=== PATIENT | male | born 1945 | race Caucasian/White ===

== ENCOUNTER 2017-05-17 13:41 | Emergency (ER) | payer OTHER, MEDICARE ==
[~2017-05-17] VITALS: Ht 175.3 cm; Wt 92.5 kg
[~2017-05-17 13:41] MED LIST: ACETAMINOPHEN-H1 TA1 PO; BACTRIM DS 8001 TAB PO; CIPRO 500MG TA500 MG PO; CRESTOR5 MG PO; DICLOFENAC SODI75 M3 PO; ENALAPRIL MALEA10 MG PO; ENALAPRIL MALEA20 MG PO; FLAGYL 500MG.500 MG PO; FLAGYL500 M1 PO; FLOMAX 0.4MG C0.4 MG PO; HYDROCODONE/ACE1 TA5 PO; HYDROCODONE1 TABLET PO; IMITREX100 MG PO; LEADER ASPIRIN325 MG PO; LEVAQUIN 750 M750 MG PO; LEVAQUIN500 MG PO; LORTAB 500 MG-11 TAB PO; NICOTINE PATCH;21 MG TD; NITROGLYCERIN0.4 MG SL; OMEPRAZOLE D/R20 MG PO; PRAVACHOL40 M1 PO; PREDNISONE 10MG10 MG PO; PREDNISONE 20MG20 MG PO; PRILOSEC20 MG; PROPRANOLOL ER80 MG PO; PYRIDIUM200 M1 PO; SUMATRIPTAN SU100 M1 PO; TAMSULOSIN HYD0.4 M1 PO; TAMSULOSIN HYD0.4 MG PO; TYLENOL W/CODEI1 TA2 PO; VOLTAREN GEL1% TP; ZOFRAN4 MG PO
[2017-05-17 13:56] LABS: HEMOGLOBIN 15.7 g/dL (14.1-18.0); LYMPH # 2.1 K/mm3 (0.7-4.5); LYMPH % 26.2 % (10-50)
--- OUTSIDE RECORDS SUMMARY | 2017-05-17 14:22 | External Medical Summary Rpt ---
Author Author [place] Address Unknown Phone [email or web address] Purpose Continuity of Care Document - through 2016
--- OUTSIDE RECORDS SUMMARY | 2017-05-17 14:22 | External Medical Summary Rpt ---
Author Author [employer] Organization [employer] Address Unknown Phone Unavailable Purpose Continuity of Care Document - through 2016
--- OUTSIDE RECORDS SUMMARY | 2017-05-17 14:22 | External Medical Summary Rpt ---
Author Author TWILA Martinez, [employer] Organization [employer] Address Unknown Phone Unavailable
--- OUTSIDE RECORDS SUMMARY | 2017-05-17 14:22 | External Medical Summary Rpt ---
Demographics Preferred Language Romansh Marital Status Unknown Restoration Affiliation Unknown Race Unknown Ethnic Group Unknown Author Author , TWILA MATTSON Address Unknown Phone Immunization Unable to retrieve immunization data due to connection failure with Immunization Registry. Please try again later.
--- OUTSIDE RECORDS SUMMARY | 2017-05-17 14:22 | External Medical Summary Rpt ---
Demographics Preferred Language Malay Marital Status Unknown Hinduism Affiliation Unknown Race Unknown Ethnic Group Unknown Author Author , TWILA MATTSON Address Unknown Phone Immunization Unable to retrieve immunization data due to connection failure with Immunization Registry. Please try again later.
--- OUTSIDE RECORDS SUMMARY | 2017-05-17 14:22 | External Medical Summary Rpt ---
Author Author [place] Address Unknown Phone [email or web address] [place] Purpose Continuity of Care Document - through 2016
--- NOTE | 2017-05-17 14:30 | RADIOLOGY REPORT PS360 ---
CT HEAD W/O CONTRAST HISTORY: NEAR SYNCOPE ORDERING PHYSICIAN: Miguel Angel Ruiz MD PATIENT AGE: 72 years COMPARISON: 12/03/2008 TECHNIQUE: Axial images obtained without contrast. Brain and bone windows reviewed. FINDINGS: No midline shift, mass effect, intracranial hemorrhage, hydrocephalus, or extra-axial fluid collection is evident. Nonspecific slight decreased attenuation is present in the periventricular and subcortical region consistent with ischemic gliotic change from microvascular disease. The calvarium has an unremarkable appearance. No mastoid effusion. There is severe mucosal thickening of the ethmoid sinuses and moderate mucosal thickening of the sphenoid and maxillary sinuses with an air-fluid level in left maxillary sinus and severe mucosal thickening of the frontal sinuses. IMPRESSION: 1. No acute intracranial pathology. 2. Sinusitis
[2017-05-17 14:37] LABS: BUN 12 mg/dL (7-18)
[2017-05-17 14:38] LABS: GFR (ESTIMATED) 37 ML/MIN (>60)
--- NOTE | 2017-05-17 14:44 | Emergency Room Report ---
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 N Clinical Suspician of Infection? N Mental Status: 1 - Regular (Normal Baseline) Sepsis Risk:Low Sepsis Risk Have you (or family members/close friends) recently traveled outside the [place]? N If Yes, where/when: Have you had exposure to infectious disease within the past month? N TB? Other? Specify: Source patient, RN notes reviewed, family, RN/MD Exam Limitations no limitations Comment This is a 72-year-old male patient presented emergency room with body aches, headache, dizziness, after spending extensive amount of time IN the heat, working. Patient has any fall, denies any head injury. Headache is described as worst ever. He denies any nausea, vomiting, fever, neck stiffness. ALLERGIES Coded Allergies: morphine (Intermediate, VOMITING 05/25/16) acetaminophen (From NYQUIL) (05/25/16) dextromethorphan (From NYQUIL) (05/25/16) doxylamine (From NYQUIL) (05/25/16) pseudoephedrine (From NYQUIL) (05/25/16) Home Medications Active Scripts NITROGLYCERIN (Nitrostat) 0.4 MG SL [id number] PRN CHEST PAIN #25 TABLET Prov: 09/26/14 Reported Medications Rosuvastatin Calcium (Crestor) 5 MG PO QHS Aspirin (Aspirin EC) 325 MG PO DAILY Omeprazole 20 MG PO BID Enalapril Maleate 10 MG PO DAILY HYDROCODONE/ACETAMINOPHEN (Hydrocodon-Acetaminophn 10-325) 1 TAB PO QIDP PRN PAIN #120 TAB Sumatriptan Succinate 100 MG PO Q2HP PRN MIGRAINES #9 TAB History Medical History General CAD? No Angina: Yes [place]: No Hypertension? Yes Hyperlipidemia? Yes CHF? No DVT? No PE? No COPD? No Asthma? No Anemia? No GERD? Yes Gastric ulcers? No GI Bleed? No Hernia? Yes Thyroid Problems? No Hypothyroidism? No CVA? No Seizures? No Diabetes? No Renal Insuffiency? No End Stage Renal Disease? No UTI? No Stones? Yes BPH? No GB Disease: No Nephritic Syndrome? No Asplenia? No Hepatitis? No Sickle Cell Disease? No Arthritis? No Migraines? No Cataracts? No Glaucoma? No MRSA? No HIV? No TB? No Anxiety? No Depression? No Cancer? No More? Yes Additional hx: DIVERTICULITIS Immunization Hx DT/Tetanus 1-4 Years Ago Flu 2015-17FSN Pneumonia Received In Past Surgical Hx Previous Surgery?Y BACK SURGERY 2006 RT KIDNEY STENT Family History Family Hx Diabetes No CAD No Hypertension Yes Hyperlipidemia Yes Cancer Yes TB No Social History Smoking Hx Smoker: Current Every Day Smoker Tobacco: Yes Type Cigarettes Packs/day < 1 Pack Alcohol Alcohol: No Review of Systems All Other Systems Reviewed and Negative Psychiatric/Neurological headache, weakness, other (dizziness) Physical Exam Vital Signs Vital Signs Date Time Temp Pulse Resp B/P Pulse O2 O2 Flow FiO2 Ox Delivery Rate 05/17 1718 97.9 50 20 129/84 97 05/17 1653 50 20 130/81 97 05/17 1609 58 20 122/70 97 05/17 1531 58 20 100/68 97 05/17 1459 20 05/17 1441 70 20 94/58 97 05/17 1344 97.9 70 20 104/69 97 General Appearance normal appearance, WD/WN, no apparent distress Neck normal inspection, non-tender, supple, full range of motion Respiratory Status Yes: trachea midline, chest symmetrical, non tender chest. No: respiratory distress. Lung Sounds bilateral: normal breath sounds, lungs clear. 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 No Comment Patient admitted that he does not drink many fluids for the day, and the only tyoe of fluid that side to drink is tea. Patient's blood pressure dropped to 90 systolic while in the emergency room, advised patient to discontinue the Vasotec at this time. His renal panel is suggestive of acute renal failure secondary to dehydration + JESSICA inhibitors. Results/Orders Laboratory Tests 05/17/17 1650: Urine Color YELLOW, Urine Appearance CLEAR, Urine pH 5.5, Ur Specific [place] 1.020, Urine Protein 1+ H, Urine Ketones NEGATIVE, Urine Blood NEGATIVE, Urine Nitrate NEGATIVE, Urine Bilirubin NEGATIVE, Urine Urobilinogen 1.0, Ur Leukocyte Esterase NEGATIVE, Urine RBC NONE, Urine WBC 3-5, Ur Squamous Epith Cells OCC, Urine Bacteria 3+, Hyaline Casts 10-20, Urine Mucus 4+, Urine Glucose NEGATIVE 05/17/17 1350: Sodium 142, Potassium 3.4 L, Chloride 102, Carbon Dioxide 31, BUN 12, Creatinine 1.8 H, Estimated Creat Clear 50, Estimated GFR (MDRD) 37, Glucose 149 H, Calcium 10.5 H, Total Bilirubin 0.7, AST 22, ALT 23, Alkaline Phosphatase 65, Creatine Kinase 222, CK-MB (CK-2) Rel Index 0.9, CK and CKMB Interp 2.1, Troponin I < 0.02, Total Protein 8.2, Albumin 4.1, Globulin 4.1 H, Albumin/Globulin Ratio 1.0 L, WBC 8.2, RBC 5.21, Hgb 15.7, Hct 46.3, MCV 88.8, RDW 13.7, Plt Count 231, MPV 8.2, Gran % 67.1, Gran # 5.5, Lymphocytes % 26.2, Monocytes % 3.3, Eosinophils % 2.6, Basophils % 0.8, Lymphocytes # 2.1, Monocytes # 0.3, Eosinophils # 0.2, Basophils # 0.1, PUBS MCHC 33.9, MCH 30.1 Current Medication Orders Sig/Wendie Start time Last Medication Dose Route Stop Time Status Admin Sodium Chloride 1,000 ML .Q1H1M 05/17 1600 DC 05/17 IV 05/17 1700 1603 Sodium Chloride 10 ML PRN PRN 05/17 1600 DCD IV 05/18 1555 Sodium Chloride 1,000 ML .STK-MED ONE 05/17 1557 DC IV Hydromorphone HCl 0.5 MG ONCE ONE 05/17 1530 DCr IV 05/17 1531 Sodium Chloride 1,000 ML .Q1H1M 05/17 1515 DC 05/17 IV 05/17 1615 1507 Sodium Chloride 10 ML PRN PRN 05/17 1515 DCD IV 05/18 1501 Sodium Chloride 1,000 ML .STK-MED ONE 05/17 1503 DC IV Ketorolac 30 MG ONCE ONE 05/17 1500 DC 05/17 Tromethamine IV 05/17 1501 1459 Ketorolac 0 .STK-MED ONE 05/17 1457 DC Tromethamine .ROUTE Ondansetron HCl 4 MG ONCE ONE 05/17 1400 DC 05/17 IV 05/17 1401 1357 Sodium Chloride 10 ML PRN PRN 05/17 1400 DCD IV 05/18 1346 Sodium Chloride 1,000 ML .Q1H1M 05/17 1400 DC 05/17 IV 05/17 1500 1356 Sodium Chloride 10 ML PRN PRN 05/17 1400 DCD IV 05/18 1346 Ondansetron HCl 0 .STK-MED ONE 05/17 1355 DC .ROUTE Sodium Chloride 1,000 ML .STK-MED ONE 05/17 1347 DC IV Orders Procedure Date/time Status DIET-NOTHING BY MOUTH 05/17 D Active URINALYSIS/COMPLETE 05/17 1657 Complete CULTURE, URINE 05/17 1650 Active ELECTROCARDIOGRAM REQUEST 05/[address] HEAD REQ 05/17 1347 Complete IV SALINE LOCK 05/17 1347 Active MOVIE PRODUCER 05/17 1347 Active CBC WITH AUTO DIFF 05/17 1347 Complete CARDIAC ENZYMES 05/17 1347 Complete CHEM 12 PROFILE 05/17 1347 Complete 12 LEAD EKG-[facility] [place] (INITIAL) 05/17 1345 Active 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 of ischemic chgs, no ectopy, normal QRS, normal VA, normal EKG, no EKG for comparison, non-spec. ST/Twave chgs, ST elevation, ST depression, LBBB, RBBB, ectopy, abnormal Q waves XRAY/CT/US XRAY/CT/US CT head CT interpretation by discussed w/radiologist CT Results normal/NAD (no ICH), no fracture seen Departure Departure Time of Disposition 170 Disposition DC Home or Self Care(routine) Clinical Impression Primary Impression: Heat exhaustion Qualifiers: Encounter type: initial encounter Qualified Code: T67.5XXA - Heat exhaustion, unspecified, initial encounter Secondary Impressions: Acute kidney injury Dehydration Head contusion Qualifiers: Encounter type: initial encounter Contusion of head detail: unspecified part of head Qualified Code: S00.93XA - Contusion of unspecified part of head, initial encounter Hypotension Qualifiers: Hypotension type: unspecified hypotension type Qualified Code: I95.9 - Hypotension, unspecified Myalgia Condition STABLE Patient Instructions DI for Contusion, DI for Dehydration -- Adult, DI for Heat Exhaustion and Heat Stroke, DI for Kidney Failure Additional Instructions Please stop the Enalapril (Vasotec). Please drink plenty of water, at least 2liters/24 hrs. Please avoid prolonged heat exposure. Please check your blood pressure at home, at rest, 1-2x/day, and keep a written log. Follow up with your family doctor in 2 weeks (take the log with your blood pressures with you). If your blood pressure is < 140/80, do NOT restart the blood pressure medication (Vasotec/Enalapril). Discharge Counseling Counseled pt/family regarding diagnosis, test results, medications/RX, home care, follow up needs Comment Please stop the Enalapril (Vasotec). Please drink plenty of water, at least 2liters/24 hrs. Please avoid prolonged heat exposure. Please check your blood pressure at home, at rest, 1-2x/day, and keep a written log. Follow up with your family doctor in 2 weeks (take the log with your blood pressures with you). If your blood pressure is < 140/80, do NOT restart the blood pressure medication (Vasotec/Enalapril). ED Critical Care Critical Care No at [id number]
--- NOTE | 2017-05-17 14:44 | Emergency Room Report ---
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 N Clinical Suspician of Infection? N Mental Status: 1 - Regular (Normal Baseline) Sepsis Risk:Low Sepsis Risk Have you (or family members/close friends) recently traveled outside the [place]? N If Yes, where/when: Have you had exposure to infectious disease within the past month? N TB? Other? Specify: Source patient, RN notes reviewed, family, RN/MD Exam Limitations no limitations Comment This is a 72-year-old male patient presented emergency room with body aches, headache, dizziness, after spending extensive amount of time IN the heat, working. Patient has any fall, denies any head injury. Headache is described as worst ever. He denies any nausea, vomiting, fever, neck stiffness. ALLERGIES Coded Allergies: morphine (Intermediate, VOMITING 05/25/16) acetaminophen (From NYQUIL) (05/25/16) dextromethorphan (From NYQUIL) (05/25/16) doxylamine (From NYQUIL) (05/25/16) pseudoephedrine (From NYQUIL) (05/25/16) Home Medications Active Scripts NITROGLYCERIN (Nitrostat) 0.4 MG SL [id number] PRN CHEST PAIN #25 TABLET Prov: 09/26/14 Reported Medications Rosuvastatin Calcium (Crestor) 5 MG PO QHS Aspirin (Aspirin EC) 325 MG PO DAILY Omeprazole 20 MG PO BID Enalapril Maleate 10 MG PO DAILY HYDROCODONE/ACETAMINOPHEN (Hydrocodon-Acetaminophn 10-325) 1 TAB PO QIDP PRN PAIN #120 TAB Sumatriptan Succinate 100 MG PO Q2HP PRN MIGRAINES #9 TAB History Medical History General CAD? No Angina: Yes [place]: No Hypertension? Yes Hyperlipidemia? Yes CHF? No DVT? No PE? No COPD? No Asthma? No Anemia? No GERD? Yes Gastric ulcers? No GI Bleed? No Hernia? Yes Thyroid Problems? No Hypothyroidism? No CVA? No Seizures? No Diabetes? No Renal Insuffiency? No End Stage Renal Disease? No UTI? No Stones? Yes BPH? No GB Disease: No Nephritic Syndrome? No Asplenia? No Hepatitis? No Sickle Cell Disease? No Arthritis? No Migraines? No Cataracts? No Glaucoma? No MRSA? No HIV? No TB? No Anxiety? No Depression? No Cancer? No More? Yes Additional hx: DIVERTICULITIS Immunization Hx DT/Tetanus 1-4 Years Ago Flu 2015-17FSN Pneumonia Received In Past Surgical Hx Previous Surgery?Y BACK SURGERY 2006 RT KIDNEY STENT Family History Family Hx Diabetes No CAD No Hypertension Yes Hyperlipidemia Yes Cancer Yes TB No Social History Smoking Hx Smoker: Current Every Day Smoker Tobacco: Yes Type Cigarettes Packs/day < 1 Pack Alcohol Alcohol: No Review of Systems All Other Systems Reviewed and Negative Psychiatric/Neurological headache, weakness, other (dizziness) Physical Exam Vital Signs Vital Signs Date Time Temp Pulse Resp B/P Pulse O2 O2 Flow FiO2 Ox Delivery Rate 05/17 1718 97.9 50 20 129/84 97 05/17 1653 50 20 130/81 97 05/17 1609 58 20 122/70 97 05/17 1531 58 20 100/68 97 05/17 1459 20 05/17 1441 70 20 94/58 97 05/17 1344 97.9 70 20 104/69 97 General Appearance normal appearance, WD/WN, no apparent distress Neck normal inspection, non-tender, supple, full range of motion Respiratory Status Yes: trachea midline, chest symmetrical, non tender chest. No: respiratory distress. Lung Sounds bilateral: normal breath sounds, lungs clear. Cardiovascular normal exam, regular rate/rhythm, no peripheral edema, no gallop, no JVD, no murmur, no rub, normal peripheral pulses Gastrointestinal normal bowel sounds, normal exam, non tender, soft, no organomegaly Extremities non-tender, normal range of motion, normal inspection Neurologic alert, abap developer II-XII nml as tested, normal exam, oriented x 3 Mental status normal mood/affect Skin normal color, warm/dry, decreased skin turgor, dry mucous membranes Medical Decision Making LABS/Meds/Orders Pt receiving controlled substance in ED? No Comment Patient admitted that he does not drink many fluids for the day, and the only tyoe of fluid that side to drink is tea. Patient's blood pressure dropped to 90 systolic while in the emergency room, advised patient to discontinue the Vasotec at this time. His renal panel is suggestive of acute renal failure secondary to dehydration + JESSICA inhibitors. Results/Orders Laboratory Tests 05/17/17 1650: Urine Color YELLOW, Urine Appearance CLEAR, Urine pH 5.5, Ur Specific [place] 1.020, Urine Protein 1+ H, Urine Ketones NEGATIVE, Urine Blood NEGATIVE, Urine Nitrate NEGATIVE, Urine Bilirubin NEGATIVE, Urine Urobilinogen 1.0, Ur Leukocyte Esterase NEGATIVE, Urine RBC NONE, Urine WBC 3-5, Ur Squamous Epith Cells OCC, Urine Bacteria 3+, Hyaline Casts 10-20, Urine Mucus 4+, Urine Glucose NEGATIVE 05/17/17 1350: Sodium 142, Potassium 3.4 L, Chloride 102, Carbon Dioxide 31, BUN 12, Creatinine 1.8 H, Estimated Creat Clear 50, Estimated GFR (MDRD) 37, Glucose 149 H, Calcium 10.5 H, Total Bilirubin 0.7, AST 22, ALT 23, Alkaline Phosphatase 65, Creatine Kinase 222, CK-MB (CK-2) Rel Index 0.9, CK and CKMB Interp 2.1, Troponin I < 0.02, Total Protein 8.2, Albumin 4.1, Globulin 4.1 H, Albumin/Globulin Ratio 1.0 L, WBC 8.2, RBC 5.21, Hgb 15.7, Hct 46.3, MCV 88.8, RDW 13.7, Plt Count 231, MPV 8.2, Gran % 67.1, Gran # 5.5, Lymphocytes % 26.2, Monocytes % 3.3, Eosinophils % 2.6, Basophils % 0.8, Lymphocytes # 2.1, Monocytes # 0.3, Eosinophils # 0.2, Basophils # 0.1, PUBS MCHC 33.9, MCH 30.1 Current Medication Orders Sig/Wendie Start time Last Medication Dose Route Stop Time Status Admin Sodium Chloride 1,000 ML .Q1H1M 05/17 1600 DC 05/17 IV 05/17 1700 1603 Sodium Chloride 10 ML PRN PRN 05/17 1600 DCD IV 05/18 1555 Sodium Chloride 1,000 ML .STK-MED ONE 05/17 1557 DC IV Hydromorphone HCl 0.5 MG ONCE ONE 05/17 1530 DCr IV 05/17 1531 Sodium Chloride 1,000 ML .Q1H1M 05/17 1515 DC 05/17 IV 05/17 1615 1507 Sodium Chloride 10 ML PRN PRN 05/17 1515 DCD IV 05/18 1501 Sodium Chloride 1,000 ML .STK-MED ONE 05/17 1503 DC IV Ketorolac 30 MG ONCE ONE 05/17 1500 DC 05/17 Tromethamine IV 05/17 1501 1459 Ketorolac 0 .STK-MED ONE 05/17 1457 DC Tromethamine .ROUTE Ondansetron HCl 4 MG ONCE ONE 05/17 1400 DC 05/17 IV 05/17 1401 1357 Sodium Chloride 10 ML PRN PRN 05/17 1400 DCD IV 05/18 1346 Sodium Chloride 1,000 ML .Q1H1M 05/17 1400 DC 05/17 IV 05/17 1500 1356 Sodium Chloride 10 ML PRN PRN 05/17 1400 DCD IV 05/18 1346 Ondansetron HCl 0 .STK-MED ONE 05/17 1355 DC .ROUTE Sodium Chloride 1,000 ML .STK-MED ONE 05/17 1347 DC IV Orders Procedure Date/time Status DIET-NOTHING BY MOUTH 05/17 D Active URINALYSIS/COMPLETE 05/17 1657 Complete CULTURE, URINE 05/17 1650 Active ELECTROCARDIOGRAM REQUEST 05/[address] HEAD REQ 05/17 1347 Complete IV SALINE LOCK 05/17 1347 Active CERTIFIED ALCOHOL COUNSELOR 05/17 1347 Active CBC WITH AUTO DIFF 05/17 1347 Complete CARDIAC ENZYMES 05/17 1347 Complete CHEM 12 PROFILE 05/17 1347 Complete 12 LEAD EKG-[facility] (INITIAL) 05/17 1345 Active CM/EKG CM/payroll officer Rhythm Normal Sinus Rhythm Rate 85 Ectopy No Comments No acute ischemic changes EKG rate, NSR, rhythm, no evid. of ischemic chgs, no ectopy, normal QRS, normal CT, normal EKG, no EKG for comparison, non-spec. ST/Twave chgs, ST elevation, ST depression, LBBB, RBBB, ectopy, abnormal Q waves XRAY/CT/US XRAY/CT/US CT head CT interpretation by discussed w/radiologist CT Results normal/NAD (no ICH), no fracture seen Departure Departure Time of Disposition 170 Disposition DC Home or Self Care(routine) Clinical Impression Primary Impression: Heat exhaustion Qualifiers: Encounter type: initial encounter Qualified Code: T67.5XXA - Heat exhaustion, unspecified, initial encounter Secondary Impressions: Acute kidney injury Dehydration Head contusion Qualifiers: Encounter type: initial encounter Contusion of head detail: unspecified part of head Qualified Code: S00.93XA - Contusion of unspecified part of head, initial encounter Hypotension Qualifiers: Hypotension type: unspecified hypotension type Qualified Code: I95.9 - Hypotension, unspecified Myalgia Condition STABLE Patient Instructions DI for Contusion, DI for Dehydration -- Adult, DI for Heat Exhaustion and Heat Stroke, DI for Kidney Failure Additional Instructions Please stop the Enalapril (Vasotec). Please drink plenty of water, at least 2liters/24 hrs. Please avoid prolonged heat exposure. Please check your blood pressure at home, at rest, 1-2x/day, and keep a written log. Follow up with your family doctor in 2 weeks (take the log with your blood pressures with you). If your blood pressure is < 140/80, do NOT restart the blood pressure medication (Vasotec/Enalapril). Discharge Counseling Counseled pt/family regarding diagnosis, test results, medications/RX, home care, follow up needs Comment Please stop the Enalapril (Vasotec). Please drink plenty of water, at least 2liters/24 hrs. Please avoid prolonged heat exposure. Please check your blood pressure at home, at rest, 1-2x/day, and keep a written log. Follow up with your family doctor in 2 weeks (take the log with your blood pressures with you). If your blood pressure is < 140/80, do NOT restart the blood pressure medication (Vasotec/Enalapril). ED Critical Care Critical Care No at [id number]
[2017-05-17 17:12] LABS: URINE BILIRUBIN - DIPSTICK NEGATIVE (NEG); URINE BLOOD NEGATIVE (NEG)
[2017-05-17 17:18] VITALS: BP 129/84
[2017-05-17 17:25] LABS: URINE SQUAMOUS CELLS OCC #/hpf (OCC)
== END 2017-05-17 17:27 | disposition home or self-care (01) ==
LOC: ER 13:41
PROVIDERS: Emergency Medicine
DX: T67.5XXA Heat exhaustion, unspecified, initial encounter (principal); I95.9 Hypotension, unspecified; E86.0 Dehydration; S00.93XA Contusion of unspecified part of head, initial encounter
CPT/HCPCS: J2405

== ENCOUNTER → 2017-09-27 | Outpatient (CLI) | payer OTHER, MEDICARE ==
[2017-09-27 17:44] LABS: BUN 13 mg/dL (7-18); PROSTATE-SPECIFIC ANTIGEN F/U 1.6 ng/mL (0.0-4.0)
[2017-09-27 18:02] LABS: GFR (ESTIMATED) 83 ML/MIN (>60)
== END ==
LOC: LAB 14:13
PROVIDERS: Internal Medicine
DX: I10 Essential (primary) hypertension (principal); E78.5 Hyperlipidemia, unspecified; R39.12 Poor urinary stream